=== PATIENT | male | born 1990 | race Caucasian/White ===

== ENCOUNTER 2024-04-29 10:17 | Emergency (ER) | payer OTHER ==
[~2024-04-29] VITALS: Ht 172.7 cm; Wt 83.9 kg
[2024-04-29 10:22] VITALS: TEMP 98.6
[2024-04-29] MEDS ORDERED: LORAZEPAM INJ 2 MG/ML VIAL ONE ×2 (10:49→11:04)
[2024-04-29 10:55] LABS: BASOPHILS # (AUTO) 0.1 K/uL (0.0-0.2); BASOPHILS % (AUTO) 0.8 % (0.0-2.0); EOSINOPHILS # (AUTO) 0.1 K/uL (0.0-0.7); HEMOGLOBIN 15.4 g/dL (13.5-17.5)
[2024-04-29 10:58] LABS: EOSINOPHILS % (AUTO) 0.5 % (0.0-6.0); HEMATOCRIT 46 % (39-51); LYMPHOCYTES # (AUTO) 2.9 K/uL (0.8-4.8); LYMPHOCYTES % (AUTO) 17.2 % (20.0-44.0); MEAN CORPUSCULAR HEMOGLOBIN 35 PG (26.0-33.0); MEAN CORPUSCULAR HGB CONC 34 g/dl (31.0-36.0); MEAN CORPUSCULAR VOLUME 103 fL (80-96); NEUTROPHILS # (AUTO) 12.7 K/uL (1.8-8.9); NEUTROPHILS % (AUTO) 75.5 % (43.0-81.0); PLATELET COUNT (AUTO) 254 K/uL (150-450); RED BLOOD CELL COUNT(AUTO) 4.44 MIL/uL (4.5-6.0); RED CELL DISTRIBUTION WIDTH 14.2 % (11.5-15.0); WHITE BLOOD COUNT (AUTO) 16.8 K/uL (4.3-11.0)
[2024-04-29 11:03] LABS: CALCIUM, SERUM 9.4 mg/dL (8.5-10.1); CARBON DIOXIDE 18 mmol/L (21-32); CHLORIDE 97 mmol/L (98-107); CREATININE 1.2 mg/dL (0.6-1.3); GLUCOSE 220 mg/dL (74-106); POTASSIUM 3.3 mmol/L (3.5-5.1); SODIUM SERUM 137 mmol/L (136-145); UREA NITROGEN, BLOOD 8 mg/dL (7-18)
[2024-04-29] MEDS: IV NS 0.9% 1,000 ML BAG IV ONE ×2 (11:05→12:15)
[2024-04-29 11:07] LABS: INR 1.14 (0.91-1.10); PARTIAL THROMBOPLASTIN TIME 22.1 SEC (24.3-34.3); PROTHROMBIN TIME 11.6 SECS (9.2-11.1)
[2024-04-29] MEDS: LORAZEPAM INJ 2 MG/ML VIAL IV ONE ×2 (11:07→11:12)
[2024-04-29 11:17] LABS: ALANINE AMINOTRANSFERASE 179 U/L (12-78); ALBUMIN 4.6 g/dL (3.4-5.0); ALKALINE PHOSPHATASE 123 U/L (46-116); ASPARTATE AMINOTRANSFERASE 209 U/L (15-37); BILIRUBIN,DIRECT 0.7 mg/dL (0.0-0.2); BILIRUBIN,TOTAL 1.6 mg/dL (0.2-1.0); TOTAL PROTEIN, SERUM 9.1 g/dL (6.4-8.2)
[2024-04-29 11:19] LABS: ALCOHOL, BLOOD < 3 mg/dL (0-10)
[2024-04-29] MEDS: LEVETIRACETAM (500MG) 1,000 MG in IV NS 0.9% 90 ML IV SCH (11:20)
[2024-04-29] MEDS ORDERED: IV PREMIX D5 1/2NS + KCL 1,000 ML IV ONE (11:42)
[2024-04-29] MEDS: IV PREMIX D5 1/2NS + KCL 1,000 ML IV ONE (11:45)
[2024-04-29 12:00] VITALS: BP 117/68; O2SAT 95
[2024-04-29] MEDS ORDERED: Thiamine 100 MG in IV D5W 50 ML IV SCH (12:00)
[2024-04-29] MEDS: Thiamine 100 MG in IV D5W 50 ML IV ONE (12:05)
[2024-04-29 12:40] LABS: SERUM AMMONIA 136 umol/L (11-32)
[2024-04-29 12:49] LABS: THYROID STIMULATING HORMONE 1.853 uIU/mL (0.358-3.74)
[2024-04-29 13:44] LABS: APPEARANCE,URINE Clear (CLEAR); BILIRUBIN,URINE Negative (NEGATIVE); BLOOD, URINE Small Ery/uL (NEGATIVE); COLOR,URINE YELLOW (YELLOW); KETONES,URINE 15 mg/dL (NEGATIVE); LEUKOCYTE ESTERASE ,URINE Negative (NEGATIVE); NITRITE, URINE Negative (NEGATIVE); PH,URINE 6.5 (5.0-8.0); PROTEIN,URINE 100 mg/dl (NEGATIVE); UGLUCOSE Negative (NEGATIVE); UROBILINOGEN,URINE 0.2 EU/dL (0.2)
[2024-04-29 13:56] LABS: WBC,URINE 0-2 /HPF (0-3)
[2024-04-29 13:57] LABS: ADD URINE CULTURE NO; BACTERIA,URINE Few /HPF (None Seen); SQUAMOUS EPITHELIAL CELL,UR Few /HPF (None Seen)
[2024-04-29 14:04] LABS: AMPHETAMINE, URINE NEGATIVE (NEGATIVE); BARBITURATE, URINE NEGATIVE (NEGATIVE); BENZODIAZEPINE, URINE NEGATIVE (NEGATIVE); COCCAINE, URINE NEGATIVE (NEGATIVE); OPIATE, URINE NEGATIVE (NEGATIVE); PHENCYCLIDINE SCREEN,URINE NEGATIVE (NEGATIVE)
[2024-04-29 14:05] LABS: CANNABINOID, URINE POSITIVE (NEGATIVE)
[2024-04-29] MEDS ORDERED: OLANZAPINE 5 MG TABLET ONE (14:50)
[2024-04-29] MEDS: OLANZAPINE ZYDIS 5 MG TAB.RAPDIS PO ONE (14:53)
== END 2024-04-29 15:40 | disposition short-term general hospital (02) ==
LOC: ER 10:19
DX: R56.9 Unspecified convulsions (principal); E87.6 Hypokalemia; R73.9 Hyperglycemia, unspecified; F10.239 Alcohol dependence with withdrawal, unspecified; F10.229 Alcohol dependence with intoxication, unspecified; Y90.0 Blood alcohol level of less than 20 mg/100 ml
CPT/HCPCS: 99285; 96365; 96366; 96368; 96375; 93005; 71045; 70450; 82140; 85025; 80048; 80076; 81001; 36415; 84443; 85730; 80320; 80307; J2060 ×2; J7060; J7030 ×3; J3411; J3490; J1953; G0480